=== PATIENT | female | born 1930 | race Caucasian/White ===

== ENCOUNTER 2019-08-24 06:43 | Inpatient (IN) | payer OTHER, BC ==
[2019-08-24 06:55] VITALS: BMI 26.6
--- NOTE | 2019-08-24 07:44 | PDOC ---
History of Present Illness - General Chief Complaint: Chest Pain Stated Complaint: CHEST PAIN Time Seen by Provider: 08/24/19 07:24 - History of Present Illness Initial Comments: 08/24/19 07:33 89 y.[address] F from [facility], [facility] HTN, depression, HLD, cervical radiculopathy presenting for self-activation by EMS for reported chest pain. As per [place] staff ([place] certified nursing attendant) the patient did not have any complaints overnight/ did not use call velasquez however called 911 on her own cell phone. At this time told EMS she had chest pain. EMS took BP verbally told the NH it was 210/100. On arrival patient is confused, AOx2 oriented to self and place but not time. Baseline mental status: normally oriented to self but not place or time. Gets confused and anxious. Patient has been having increasing anxiety and forgetfulness d/t not seeing who used to visit daily but now cannot due to current global health concerns. Past History - Past Medical History Allergies/Adverse Reactions: Allergies Allergy/AdvReac Type Severity Reaction Status Date / Time No Known Allergies Allergy Verified 08/24/19 06:55 Home Medications: Ambulatory Orders Amlodipine Besylate [Norvasc -] 5 mg PO DAILY 08/24/19 Aspirin [ASA -] 81 mg PO DAILY 08/24/19 Bupropion HCl [Wellbutrin Sr] 150 mg PO DAILY 08/24/19 Cyanocobalamin [Vitamin B12 -] 1,000 mcg PO DAILY 08/24/19 Duloxetine HCl [Cymbalta] 30 mg PO DAILY 08/24/19 Letrozole 2.5 mg PO DAILY 08/24/19 Methenamine Hippurate [Hiprex [Nf] -] 1 gm PO BID 08/24/19 Propranolol HCl 40 mg PO DAILY 08/24/19 Simvastatin 10 mg PO DAILY 08/24/19 Sodium Chloride Tablet - 1 gm PO BID 08/24/19 - Psycho Social/Smoking Cessation Hx Smoking History: Never smoked Hx Alcohol Use: Yes Drug/Substance Use Hx: No Review of Systems - Review of Systems Comments:: 08/24/19 07:50 GENERAL: No acute distress. No fever or chills. No weakness. HEENT: NCAT. Dry oral mucosa CARDIOVASCULAR: Deneis chest pain or palpitations RESPIRATORY: Denies cough, shortness of breath GASTROINTESTINAL: No nausea, vomiting, diarrhea or constipation. GENITOURINARY: No dysuria, frequency, or change in urination. MUSCULOSKELETAL: No joint or muscle swelling or pain. SKIN: No rashes or lesions noted NEUROLOGIC: No headache, lightheadedness, loss of consciousness, or change in strength/sensation. *Physical Exam - Vital Signs Last Vital Signs Temp Pulse Resp BP Pulse Ox 98.1 F 69 16 143/74 95 08/24/19 06:45 08/24/19 06:45 08/24/19 06:45 08/24/19 06:45 08/24/19 06:45 - Physical Exam 08/24/19 07:52 GENERAL: AAOx2 oriented to self and place not time, in NAD HEENT: NCAT, PERRLA, sclera anicteric, conjunctiva clear, oropharynx clear w/o exudates. Dry oral mucosa/ cracked lips NECK: Normal ROM, supple LUNGS: CTABL no wheezes/ rhonchi/ rales. No distress, speaks in full sentences. No increased work of breathing. HEART: RRR, normal S1 S2, no MRG, peripheral pulses normal and equal b/l. No chest wall tenderness. ABDOMEN: Soft, NTND, + BS. No guarding or rebound. MSK: ROM WNL EXTREMITIES: Normal inspection. No peripheral edema. No clubbing or cyanosis. NEUROLOGICAL: CN II-XII intact. Mildly dysarthric, reported at baseline by NH. Good handgrip strength. No facial droop. Sensory intact throughout. Active ROM 5/5 all extremities. SKIN: no rashes or lesions noted ED Treatment Course - LABORATORY CBC & Chemistry Diagram: 08/24/19 09:42 08/24/19 09:42 Medical Decision Making - Medical Decision Making 08/24/19 11:35 EKG: NSR. No ST-T changes. qtc 425 08/24/19 11:45 CMP: K+ 5.6 * CT head: Moderate atrophy and periventricular chronic microvascular ischemic disease changes. No gross acute intracranial pathology is identified. Correlate to determine further evaluation and follow-up. Bilateral maxillary antra chronic sinusitis * CXR: No acute chest pathology. Prominent heart. 08/24/19 11:47 Will admit for r/o ACS workup + altered mental status 08/24/19 11:57 Spoke w/ PCP Dr. Dumont-- admit to telemetry-- repeat trop Discharge - Discharge Information Problems reviewed: Yes Clinical Impression/Diagnosis: Chest pain Condition: Stable - Admission Yes - Follow up/Referral - Patient Discharge Instructions - Post Discharge Activity
--- NOTE | 2019-08-24 08:16 | PDOC ---
Attending Attestation - Resident Resident Name: Maria Dolores John - ED Attending Attestation I have performed the following: I have examined & evaluated the patient, The case was reviewed & discussed with the resident, I agree w/resident's findings & plan, Exceptions are as noted - HPI HPI: 08/27/19 14:19 89 y.o. F from [facility] NH, PMH HTN, depression, HLD, cervical radiculopathy presenting for self-activation by EMS for reported chest pain. - Physicial Exam PE: 08/27/19 14:19 Vitals: Triage Vital signs reviewed General Appearance: No acute distress, well nourished well developed, Head: Atraumatic, Cardiac: Regular rate and rhythym, Lungs: Clear to auscultation bilateral, good air movement bilaterally, Abdomen: Soft, non distended, normal bowel sounds, non tender to palpation Psych: Normal mood, normal affect - Medical Decision Making 08/27/19 14:23 89 from [facility] hypertension depression hyperlipidemia with chest pain no ST elevations on EKG first troponin negative will observe on telemetry for further management. Discharge - Discharge Information Problems reviewed: Yes Clinical Impression/Diagnosis: Chest pain Qualifiers: Chest pain type: unspecified Qualified Code(s): R07.9 - Chest pain, unspecified Condition: Stable Disposition: [facility]WAY FACILITY - Follow up/Referral - Patient Discharge Instructions - Post Discharge Activity
[2019-08-24] MEDS ORDERED: SODIUM CHLORIDE 1,000 ML IV STA (08:18)
[2019-08-24 10:47] LABS: ALBUMIN 3.5 g/dl (3.4-5.0); ALK PHOS 58 U/L (45-117); ANION GAP 5 MMOL/L (8-16); BILIRUBIN,TOTAL 0.6 mg/dL (0.2-1); BLOOD UREA NITROGEN 15.3 mg/dL (7-18); CALCIUM 9.2 mg/dL (8.5-10.1); CHLORIDE 106 mmol/L (98-107); CO2 27 mmol/L (21-32); GLUCOSE,RANDOM 80 mg/dL (74-106); POTASSIUM 5.6 mmol/L (3.5-5.1); SGOT/AST 54 U/L (15-37); SGPT/ALT 35 U/L (13-61); SODIUM 138 mmol/L (136-145); TOT PROT 7.7 g/dl (6.4-8.2)
[2019-08-24 12:03] LABS: HEMATOCRIT 44.1 % (32.4-45.2); HEMOGLOBIN 14.6 GM/dL (10.7-15.3); MCH 34.5 pg (25.7-33.7); MCHC 33.2 g/dl (32.0-36.0); MEAN CELL VOLUME 103.7 fl (80-96); MEAN PLT VOLUME 9.2 fl (7.5-11.1); PLATELET COUNT 273 K/MM3 (134-434); RBC 4.25 M/mm3 (3.60-5.2); RDW 13.3 % (11.6-15.6); WHITE BLOOD COUNT 7.4 K/mm3 (4.0-10.0)
[2019-08-24 12:43] LABS: EPI CELLS 30 /uL (0-25.1); HYALINE CASTS 2 /uL (0-3.1); PH,URINE 5.5 (5.0-8.0); URINE APPEARANCE CLOUDY; URINE BILIRUBIN NEGATIVE (NEGATIVE); URINE COLOR YELLOW; URINE GLUCOSE (UA) NEGATIVE (NEGATIVE); URINE KETONE 1+ (NEGATIVE); URINE LEUK ESTERASE 2+ (NEGATIVE); URINE NITRITE NEGATIVE (NEGATIVE); URINE PROTEIN 2+ (NEGATIVE); URINE RBC 158 /uL (0-23.9); URINE UROBILINOGEN 0.2 mg/dL (0.2-1.0); URINE WBC 2616 /uL (0-25.8)
[2019-08-24] MEDS ORDERED: SODIUM POLYSTYRENE SULFONATE 15 GM/60 ML BOTTLE PO ONE ×2 (14:34→16:00)
[2019-08-24] MEDS ORDERED: CEFTRIAXONE 1 GM in DEXTROSE 5%-WATER - 50 ML IVPB ONE ×2 (14:36→16:00)
[2019-08-24] MEDS ORDERED: PT OWN MED DRAWER 7, Y5N ONE ×2 (15:38→15:40)
[2019-08-24] MEDS ORDERED: cefTRIAXone SODIUM 1 GM VIAL ONE (15:53)
[2019-08-24] MEDS ORDERED: DEXTROSE 5%-WATER - 50 ML IVPB ONE (15:53)
[2019-08-24] MEDS: amLODIPine BESYLATE 5 MG TABLET (FP) PO SCH (16:05)
[2019-08-24] MEDS: DULoxetine HCL 30 MG CAPSULE.DR PO SCH (16:06)
[2019-08-24] MEDS: ASPIRIN 81 MG CHEWABLE TABLETS PO SCH (16:14)
--- NOTE | 2019-08-24 16:31 | HP ---
Admitting History and Physical - Primary Care Physician PCP: Anabel Dumont S - Admission Chief Complaint: CP History of Present Illness: 89 y.o. F from [facility], [facility] HTN, depression, HLD, cervical radiculopathy presenting for self-activation by EMS for reported chest pain. As per CT staff the patient did not have any complaints overnight/ did not use call velasquez however she called 911 herself on her own cell phone. At this time told EMS she had chest pain. EMS took BP and it was 210/100. On arrival patient is confused, AOx2 oriented to self and place but not time. Baseline mental status: normally oriented to self but not place or time. Gets confused and anxious. Patient has been having increasing anxiety and forgetfulness d/t not seeing who used to visit daily but now cannot due to current global health concerns. 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 Cardiovascular: Yes: HTN - Smoking History Smoking history: Never smoked Have you smoked in the past 12 months: No - Alcohol/Substance Use Hx Alcohol Use: Yes History of Substance Use: reports: None - Social History Usual Living Arrangement: Yes: Shelter History of Recent Travel: No Home Medications - Allergies Allergies/Adverse Reactions: Allergies Allergy/AdvReac Type Severity Reaction Status Date / Time No Known Allergies Allergy Verified 08/24/19 06:55 - Home Medications Home Medications: Ambulatory Orders Amlodipine Besylate [Norvasc -] 5 mg PO DAILY 08/24/19 Aspirin [ASA -] 81 mg PO DAILY 08/24/19 Bupropion HCl [Wellbutrin Sr] 150 mg PO DAILY 08/24/19 Cyanocobalamin [Vitamin B12 -] 1,000 mcg PO DAILY 08/24/19 Duloxetine HCl [Cymbalta] 30 mg PO DAILY 08/24/19 Letrozole 2.5 mg PO DAILY 08/24/19 Methenamine Hippurate [Hiprex [Nf] -] 1 gm PO BID 08/24/19 Propranolol HCl 40 mg PO DAILY 08/24/19 Simvastatin 10 mg PO DAILY 08/24/19 Sodium Chloride Tablet - 1 gm PO BID 08/24/19 Family Medical History Family History: Unremarkable Review of Systems - Review of Systems Constitutional: denies: Fever Eyes: denies: Blurred Vision HENT: denies: Ear Pain Cardiovascular: reports: Chest Pain. denies: Palpitations, Shortness of Breath Respiratory: denies: Cough, SOB Gastrointestinal: denies: Abdominal Pain Genitourinary: denies: Hematuria Integumentary: denies: Rash Neurological: reports: Confusion Hematology/Lymphatic: denies: Excessive Bleeding Physical Examination Vital Signs: Vital Signs Temperature 98.3 F 08/24/19 12:05 Pulse Rate 77 08/24/19 12:28 Respiratory Rate 16 08/24/19 13:00 Blood Pressure 148/77 08/24/19 12:28 O2 Sat by Pulse Oximetry (%) 96 08/24/19 13:00 Constitutional: Yes: No Distress, Calm Eyes: Yes: Conjunctiva Clear HENT: Yes: Atraumatic Neck: Yes: Supple Cardiovascular: Yes: Regular Rate and Rhythm Respiratory: Yes: Diminished Gastrointestinal: Yes: Soft. No: Tenderness Renal/: No: Hematuria Musculoskeletal: No: Joint Stiffness, Joint Swelling Extremities: No: Cold, Cool Edema: No Integumentary: No: Rash, Venous Stasis Changes Neurological: Yes: Alert. No: Oriented ...Motor Strength: WNL Psychiatric: Yes: Alert. No: Oriented, Agitated Labs: CBC, BMP 08/24/19 09:42 08/24/19 09:42 Imaging - Results Chest X-ray: Report Reviewed Other: Report Reviewed Assessment/Plan 89 y.o. F from [facility], [facility] HTN, depression, HLD, cervical radiculopathy presenting for self-activation by EMS for reported chest pain. per EMS BP in the CT it was 210/100. admitted to telemetry; cardiology eval; f/u labs CE EKG falls decubs PFX BP control d/w staff
[2019-08-24] MEDS: LETROZOLE 2.5 MG TABLET (FP) PO SCH (18:17)
[2019-08-24] MEDS: SODIUM CHLORIDE 1 GM TABLET PO SCH (21:16)
[2019-08-24] MEDS ORDERED: ATORVASTATIN CA 20 MG TABLET (FP) PO SCH (22:00)
[2019-08-25] MEDS ORDERED: PT OWN MED DRAWER 7, Y5N ONE (09:43)
[2019-08-25] MEDS: DULoxetine HCL 30 MG CAPSULE.DR PO SCH (09:57)
[2019-08-25] MEDS: amLODIPine BESYLATE 5 MG TABLET (FP) PO SCH (09:57)
[2019-08-25] MEDS: ASPIRIN 81 MG CHEWABLE TABLETS PO SCH (09:57)
[2019-08-25] MEDS: SODIUM CHLORIDE 1 GM TABLET PO SCH (09:58)
[2019-08-25] MEDS: LETROZOLE 2.5 MG TABLET (FP) PO SCH (09:58)
[2019-08-25] MEDS ORDERED: CYANOCOBALAMIN 1,000 MCG TABLET (FP) PO SCH (10:00)
--- NOTE | 2019-08-25 10:20 | EKG ---
Test Reason : Blood Pressure : / mmHG Vent. Rate : 073 BPM Atrial Rate : 073 BPM P-R Int : 164 ms QRS Dur : 082 ms QT Int : 386 ms P-R-T Axes : 011 -28 010 degrees QTc Int : 425 ms NORMAL SINUS RHYTHM WITH SINUS ARRHYTHMIA NONSPECIFIC T WAVE ABNORMALITY ABNORMAL ECG NO PREVIOUS ECGS AVAILABLE Confirmed by Yann Vasquez MD ([id number]) on 08/25/2019 10:19:55 AM Referred By: Confirmed By:Yann Vasquez MD
--- NOTE | 2019-08-25 11:25 | DS ---
Physical Examination Vital Signs: Vital Signs Temperature 98.8 F 08/25/19 06:00 Pulse Rate 102 H 08/25/19 10:00 Respiratory Rate 16 08/25/19 10:00 Blood Pressure 142/70 08/25/19 10:00 O2 Sat by Pulse Oximetry (%) 95 08/24/19 21:00 Findings/Remarks: awake alert on 4w BP better no arrhythmia; seen by cradio no further testing at this point; to f/u outpt; CE negative; no CP / SOB Constitutional: Yes: No Distress, Calm Eyes: Yes: Conjunctiva Clear HENT: Yes: Atraumatic Neck: Yes: Supple Cardiovascular: Yes: Regular Rate and Rhythm Respiratory: Yes: CTA Bilaterally Gastrointestinal: Yes: Soft. No: Tenderness Renal/: No: Hematuria Musculoskeletal: No: Joint Stiffness, Joint Swelling Extremities: No: Cold, Cool Edema: No Integumentary: No: Rash, Venous Stasis Changes Neurological: Yes: Alert ...Motor Strength: WNL Psychiatric: Yes: Alert. No: Agitated Labs: CBC, BMP 08/24/19 09:42 08/24/19 09:42 Discharge Summary Problems reviewed: Yes Reason For Visit: CHEST PAIN Current Active Problems Chest pain (Acute) Procedures: Principal: 89 YOF NHR HTN OA DJD dementia HLP admitted with CP and HTN urgency; Other Procedures: monitored in telemetry; CE negative; seen by cardiology and cleared for NH DC today Hospital Course: CE negative; cleared by cardio for DC to NH; meds adjusted per BP; f/u PCP and cardiology in NH. Condition: Stable - Instructions Diet, Activity, Other Instructions: DC back to NH; f/u PCP in NH in few days cardiology f/u outpt. RTER if recurrent CP. Referrals: Jorge Dumont MD [Staff Physician] - Disposition: [facility] - Home Medications Comprehensive Discharge Medication List: Ambulatory Orders Amlodipine Besylate [Norvasc -] 5 mg PO DAILY 08/24/19 Aspirin [ASA -] 81 mg PO DAILY 08/24/19 Bupropion HCl [Wellbutrin Sr] 150 mg PO DAILY 08/24/19 Cyanocobalamin [Vitamin B12 -] 1,000 mcg PO DAILY 08/24/19 Duloxetine HCl [Cymbalta] 30 mg PO DAILY 03/24/20 Letrozole 2.5 mg PO DAILY 08/24/19 Propranolol HCl 40 mg PO DAILY 08/24/19 Simvastatin 10 mg PO DAILY 08/24/19 Sodium Chloride Tablet - 1 gm PO BID 08/24/19
--- NOTE | 2019-08-25 12:33 | CON.CARD ---
Consult Consult Specialty:: Cardiology Referred by:: Medicine Reason for Consultation:: chest pain - History of Present Illness Chief Complaint: chest pain History of Present Illness: 89F h/o HTN, depression, HLD p/w chest pain, called EMS herself from [facility] for chest pain, BP with EMS 210/100. History obtained per chart as she does not remember last night, history of dementia. She was very anxious, confused (baseline AOx2 self and place generally), worsening confusion in setting of lack of visitors due to health concerns. This morning she says she feels ok, no chest pain, palps, dizziness, dyspnea - Past Medical History BOX STACKER: Yes: Dementia Cardio/Vascular: Yes: HTN - Alcohol/Substance Use Hx Alcohol Use: Yes History of Substance Use: reports: None - Smoking History Smoking history: Never smoked Have you smoked in the past 12 months: No - Social History History of Recent Travel: No Home Medications - Allergies Allergies/Adverse Reactions: Allergies Allergy/AdvReac Type Severity Reaction Status Date / Time No Known Allergies Allergy Verified 08/24/19 06:55 - Home Medications Home Medications: Ambulatory Orders Amlodipine Besylate [Norvasc -] 5 mg PO DAILY 08/24/19 Aspirin [ASA -] 81 mg PO DAILY 08/24/19 Bupropion HCl [Wellbutrin Sr] 150 mg PO DAILY 08/24/19 Cyanocobalamin [Vitamin B12 -] 1,000 mcg PO DAILY 08/24/19 Duloxetine HCl [Cymbalta] 30 mg PO DAILY 08/24/19 Letrozole 2.5 mg PO DAILY 08/24/19 Propranolol HCl 40 mg PO DAILY 08/24/19 Simvastatin 10 mg PO DAILY 08/24/19 Sodium Chloride Tablet - 1 gm PO BID 08/24/19 Family Medical History Family History: Unable to Obtain (dementia) Review of Systems Unable to obtain ROS, reason: dementia Vital Signs: Vital Signs Temperature 98.8 F 08/25/19 06:00 Pulse Rate 102 H 08/25/19 10:00 Respiratory Rate 16 08/25/19 10:00 Blood Pressure 142/70 08/25/19 10:00 O2 Sat by Pulse Oximetry (%) 95 08/24/19 21:00 Constitutional: Yes: No Distress, Calm Eyes: Yes: Conjunctiva Clear, EOM Intact HENT: Yes: Atraumatic, Normocephalic Neck: Yes: Supple, Trachea Midline Respiratory: Yes: Regular, CTA Bilaterally Gastrointestinal: Yes: Normal Bowel Sounds, Soft Cardiovascular: Yes: Regular Rate and Rhythm JVD: No Heart Sounds: Yes: S1, S2 Edema: No Neurological: Yes: Alert, Oriented Psychiatric: No: Agitated - Other Data Labs, Other Data: CBC, BMP 08/24/19 09:42 Troponin, BNP 08/24/19 16:00 Troponin I < 0.02 Troponin, BNP 08/24/19 16:00 Troponin I < 0.02 Assessment/Plan EKG 08/2019 sinus, nl intervals, no ischemic changes CXR: no acute process tele: sinus chest pain - EKG no ischemic changes, trop neg x 2 unlikely ACS - resolved, may have been in setting of anxiety,elevated BP - currently no high risk features - given ongoing public health risks with coronavirus, would defer further testing with echo/stress test at this point as it is unlikely to ion exchange operator and may put patient at increased risk at this point - can consider as outpatient if ongoing concerns HTN - initial BP per EMS high 210/100, now improved - cont current meds HLD - cont statin
[2019-08-25 12:53] LABS: BLOOD UREA NITROGEN 12.3 mg/dL (7-18); CALCIUM 9.1 mg/dL (8.5-10.1); CREATININE 0.9 mg/dL (0.55-1.3); POTASSIUM 3.9 mmol/L (3.5-5.1)
[2019-08-25 14:15] VITALS: BP 139/73; PULSE 79
[2019-08-25 14:57] VITALS: TEMP 99
== END 2019-08-25 19:28 | DRG 313 ==
LOC: JER 06:43 → JERBED 12:05 → J4W 13:43
PROVIDERS: ADMIT Internal Medicine; ATTEND Internal Medicine
DX: R07.9 Chest pain, unspecified (principal); I16.0 Hypertensive urgency; E78.5 Hyperlipidemia, unspecified; F41.8 Other specified anxiety disorders; F03.90 Unspecified dementia, unspecified severity, without behavioral disturbance, psychotic disturbance, mood disturbance, and anxiety; M19.90 Unspecified osteoarthritis, unspecified site
CPT/HCPCS: 36415; 70450-TC; 71045-TC-FY; 80048; 80053; 81003; 82550; 84443; 84484; 85027; 87086; 87186; 93005; 93010; 99285-25; J7030